=== PATIENT | female | born 1995 | race Two or more races ===

== ENCOUNTER 2017-12-16 05:55 | Emergency (ER) | payer OTHER ==
[~2017-12-16] VITALS: Ht 165.1 cm; Wt 96.7 kg
[2017-12-16 06:05] VITALS: Ht 165.1 cm; Wt 96.7 kg
[2017-12-16 07:52] VITALS: BP 121/78
== END 2017-12-16 07:53 | disposition home or self-care (01) ==
LOC: ED 05:55
DX: R10.13 Epigastric pain (principal); R19.7 Diarrhea, unspecified; R11.10 Vomiting, unspecified

== ENCOUNTER 2020-06-25 06:16 | Emergency (ER) | payer OTHER ==
[~2020-06-25] VITALS: Ht 165.1 cm; Wt 98.9 kg
[2020-06-25 06:26] VITALS: BP 130/87; Ht 165.1 cm; Wt 98.9 kg
[2020-06-25] MEDS ORDERED: BACTRIM DS1 TAB PO (06:59)
[2020-06-25] MEDS ORDERED: IBU600 M2 PO (06:59)
[2020-06-25] MEDS ORDERED: ULTRAM50 MG PO (06:59)
== END 2020-06-25 07:13 | disposition home or self-care (01) ==
LOC: ED 06:16
DX: N10 Acute pyelonephritis (principal)